=== PATIENT | male | born 1985 | race American Indian/Alaskan Native ===

== ENCOUNTER 2018-06-09 | Emergency (ER) | payer SELFPAY ==
[2018-06-09 00:05] VITALS: BP 114/70
--- NOTE | 2018-06-09 01:07 | XRay Report ---
FINAL REPORT EXAM: XR HAND 2V LT HISTORY: left palm pain around thumb TECHNIQUE: Two views of the left hand PRIORS: None. FINDINGS: The bones are normally aligned and mineralized. The joint spaces are well-preserved. There is no evidence of acute fracture. The soft tissues are unremarkable. IMPRESSION: No evidence of acute fracture or subluxation.
== END 2018-06-09 02:29 | disposition left against medical advice (07) ==
LOC: ED
DX: M79.642 Pain in left hand (principal); Z53.21 Procedure and treatment not carried out due to patient leaving prior to being seen by health care provider